=== PATIENT | female | born 1960 | race Hispanic/Latino ===

== ENCOUNTER 2019-10-26 23:56 | Emergency (ER) | payer MEDICAID ==
[~2019-10-26 23:56] MED LIST: ANAS1TAB7 PO; CARB-39 PO; DIPH25 PO; FURO20TA6 PO; IBUP-2784 PO; LACT10SO32 PO; MULT1TAB70 PO; OMEP40CA13 PO; ROPI5TAB4 PO; SPIR50TA5 PO; TRAM50TA4 PO
[2019-10-27 01:11] LABS: APPEARANCE,URINE Clear (CLEAR); BILIRUBIN,URINE Negative (NEGATIVE); COLOR,URINE Yellow (YELLOW); GLUCOSE, URINE (UA) Negative (NEGATIVE); KETONES,URINE Negative (NEGATIVE); LEUKOCYTE ESTERASE ,URINE Negative (NEGATIVE); NITRATE,URINE Negative (NEGATIVE); OCCULT BLOOD,URINE Negative (NEGATIVE); PROTEIN,URINE Negative (NEGATIVE); UROBILINOGEN,URINE 0.2 mg/dL (0.2-1.0)
[2019-10-27] MEDS ORDERED: KETOROLAC TROMETHAMINE 60 MG/2 ML VIAL ONE (01:13)
[2019-10-27] MEDS ORDERED: ONDANSETRON HCL 4 MG/2 ML VIAL ONE (01:13)
[2019-10-27 01:15] LABS: BASOPHILS % (AUTO) 0.3 % (0.0-5.0); EOSINOPHILS % (AUTO) 6.3 % (0.0-8.0); HEMATOCRIT 33.3 % (36-48); LYMPHOCYTES % (AUTO) 25.2 % (21.0-51.0); MEAN CORPUSCULAR HEMOGLOBIN 22.4 pg (27.0-33.0); MEAN CORPUSCULAR HGB CONC 28.8 g/dL (32.0-36.0); MEAN CORPUSCULAR VOLUME 77.6 fL (79-99); MONOCYTES % (AUTO) 14.4 % (3.0-13.0); NEUTROPHILS % (AUTO) 53.5 % (40.0-77.0); PLATELET COUNT (AUTO) 136 K/uL (130-400); RED BLOOD CELL COUNT(AUTO) 4.29 MIL/uL (4.00-5.50); RED CELL DISTRIBUTION WIDTH 18.6 % (11.0-15.5)
[2019-10-27 01:23] LABS: CREATININE 0.8 mg/dL (0.5-1.5); POTASSIUM 3.6 mmol/L (3.5-5.1)
[2019-10-27 01:28] LABS: ALBUMIN 3.1 g/dL (3.5-5.0); BILIRUBIN,TOTAL 0.6 mg/dL (0.2-1.0)
[2019-10-27] MEDS ORDERED: MORPHINE SULFATE 4 MG/1ML SYG ONE (01:31)
[2019-10-27 01:53] LABS: AMPHET/METH SCREEN,URINE NEGATIVE (NEGATIVE); BARBITURATE SCREEN, URINE NEGATIVE (NEGATIVE); BENZODIAZEPINES SCREEN,URINE NEGATIVE (NEGATIVE); CANNABINOID SCREEN,URINE NEGATIVE (NEGATIVE); COCAINE SCREEN,URINE NEGATIVE (NEGATIVE); OPIATE SCREEN,URINE NEGATIVE (NEGATIVE); PHENCYCLIDINE SCREEN,URINE NEGATIVE (NEGATIVE)
== END 2019-10-27 02:30 | disposition home or self-care (01) ==
LOC: EDH 23:56
DX: G89.29 Other chronic pain (principal); K74.60 Unspecified cirrhosis of liver; F41.9 Anxiety disorder, unspecified; M81.0 Age-related osteoporosis without current pathological fracture; G20 Parkinson's disease; F20.9 Schizophrenia, unspecified
CPT/HCPCS: 36415; 80053; 80305; 81003; 82550; 84484; 85025; 85651; 93005; 96374; 96375; 99285; J1885; J2270; J2405

== ENCOUNTER → 2020-03-13 | Outpatient (CLI) | payer MEDICAID ==
[~2020-03-13] MED LIST changes: +ALBUMIN (HUMAN) 25% 200 ML IV SCH; -ANAS1TAB7 PO; -CARB-39 PO; -DIPH25 PO; -FURO20TA6 PO; -IBUP-2784 PO; -LACT10SO32 PO; -MULT1TAB70 PO; -OMEP40CA13 PO; -ROPI5TAB4 PO; -SPIR50TA5 PO; -TRAM50TA4 PO
--- NOTE | 2020-03-13 10:25 | NUR ---
US GUIDED PARACENTESIS ORDERED. NOT DONE US OF ALL 4 QUADRANTS OF THE ABDOMEN PERFORMED BY SHAKILA MENDOZA. DR. MORAN REVIEWED THE IMAGES AND CONFIRMED, NOT ENOUGH FLUID TO SAFELY PERFORM PROCEDURE. INFORMED PT/FAMILY OF RESULTS. CALLED REPORT TO [facility], ROSALEE GIL LVN. PT DISCHARGED TO [facility] VIA STRETCHER, STABLE, AAO X 3, NO C/O PAIN.
== END | disposition home or self-care (01) ==
LOC: RAH 10:02
PROVIDERS: ATTEND Family Medicine
DX: K74.60 Unspecified cirrhosis of liver (principal); R18.8 Other ascites; F41.9 Anxiety disorder, unspecified; M81.0 Age-related osteoporosis without current pathological fracture; F20.9 Schizophrenia, unspecified; G20 Parkinson's disease

== ENCOUNTER 2020-03-30 19:26 | Inpatient (IN) | payer MEDICAID ==
[~2020-03-30] VITALS: Ht 152.4 cm; Wt 84.0 kg
[~2020-03-30 19:26] MED LIST changes: -ALBUMIN (HUMAN) 25% 200 ML IV SCH; +ANAS1TAB7 PO; +CARB-39 PO; +DIPH25 PO; +FURO20TA6 PO; +IBUP-2784 PO; +LACT10SO32 PO; +MULT-660 PO; +OMEP40CA13 PO; +ROPI5TAB4 PO; +SPIR50TA5 PO; +TRAM50TA4 PO
[2020-03-30 20:16] LABS: APPEARANCE,URINE Clear (CLEAR); BILIRUBIN,URINE Negative (NEGATIVE); COLOR,URINE Yellow (YELLOW); GLUCOSE, URINE (UA) Negative (NEGATIVE); KETONES,URINE Negative (NEGATIVE); LEUKOCYTE ESTERASE ,URINE Negative (NEGATIVE); NITRATE,URINE Negative (NEGATIVE); OCCULT BLOOD,URINE Moderate (NEGATIVE); PROTEIN,URINE Negative (NEGATIVE)
[2020-03-30 20:26] LABS: BACTERIA,URINE Rare /HPF (None Seen); MUCUS,URINE None Seen LPF (None Seen); SQUAMOUS EPITHELIAL CELL,UR 0-2 /HPF (0-2); WBC,URINE 0-1 /HPF (0-1)
[2020-03-30 20:41] LABS: BASOPHILS % (AUTO) 0.5 % (0.0-5.0); HEMATOCRIT 34.6 % (36-48); LYMPHOCYTES % (AUTO) 21.7 % (21.0-51.0); MEAN CORPUSCULAR HEMOGLOBIN 23.8 pg (27.0-33.0); MEAN CORPUSCULAR HGB CONC 31.2 g/dL (32.0-36.0); MEAN CORPUSCULAR VOLUME 76.4 fL (79-99); MONOCYTES % (AUTO) 10.3 % (3.0-13.0); NEUTROPHILS % (AUTO) 64.9 % (40.0-77.0); PLATELET COUNT (AUTO) 212 K/uL (130-400); RED BLOOD CELL COUNT(AUTO) 4.53 MIL/uL (4.00-5.50); RED CELL DISTRIBUTION WIDTH 21.1 % (11.0-15.5); WHITE BLOOD COUNT (AUTO) 8.7 K/uL (4.8-10.8)
[2020-03-30 20:58] LABS: CREATININE 1.2 mg/dL (0.5-1.5); POTASSIUM 4.7 mmol/L (3.5-5.1)
[2020-03-30 21:03] LABS: ALBUMIN 2.3 g/dL (3.5-5.0); BILIRUBIN,TOTAL 1.3 mg/dL (0.2-1.0); TOTAL PROTEIN, SERUM 7.7 g/dL (6.0-8.3)
[2020-03-30] MEDS ORDERED: ONDANSETRON ODT 4 MG TAB ONE (23:31)
[2020-03-30] MEDS ORDERED: MORPHINE SULFATE 4 MG/1ML SYG ONE (23:31)
[2020-03-31] MEDS ORDERED: SODIUM CHLORIDE 0.9% 500ML 500 ML IV ONE ×2 (00:15→01:21)
[2020-03-31] MEDS: SODIUM CHLORIDE 0.9% 1000ML 1,000 ML IV SCH ×2 (02:08→12:08)
[2020-03-31] MEDS ORDERED: ONDANSETRON HCL 4 MG/2 ML VIAL IV PRN (02:15)
[2020-03-31] MEDS ORDERED: ACETAMINOPHEN 325 MG TAB PO PRN (02:15)
[2020-03-31] MEDS ORDERED: LACTULOSE 20 GM/30 ML UDCUP PO PRN (02:15)
[2020-03-31] MEDS ORDERED: VANCOMYCIN 1GM+NS 250ML 250 ML IV ONE (02:27)
[2020-03-31] MEDS ORDERED: ZOSYN 3.375GM+NS 50ML 50 ML IV ONE ×2 (02:27→07:45)
[2020-03-31] MEDS ORDERED: ZIPRASIDONE MESYLATE 20 MG/VIAL IM ONE (03:09)
[2020-03-31] MEDS ORDERED: ZIPRASIDONE MESYLATE 20 MG/VIAL IM SCH (03:15)
[2020-03-31] MEDS ORDERED: SODIUM CHLORIDE 0.9% 1000ML 1,000 ML IV ONE (07:17)
[2020-03-31 07:40] LABS: BASOPHILS % (AUTO) 0.8 % (0.0-5.0); EOSINOPHILS % (AUTO) 8.2 % (0.0-8.0); HEMATOCRIT 31.2 % (36-48); LYMPHOCYTES % (AUTO) 27.6 % (21.0-51.0); MEAN CORPUSCULAR HEMOGLOBIN 23.6 pg (27.0-33.0); MEAN CORPUSCULAR HGB CONC 30.1 g/dL (32.0-36.0); MEAN CORPUSCULAR VOLUME 78.2 fL (79-99); MONOCYTES % (AUTO) 11.1 % (3.0-13.0); NEUTROPHILS % (AUTO) 51.7 % (40.0-77.0); PLATELET COUNT (AUTO) 161 K/uL (130-400); RED BLOOD CELL COUNT(AUTO) 3.99 MIL/uL (4.00-5.50); RED CELL DISTRIBUTION WIDTH 21.1 % (11.0-15.5); WHITE BLOOD COUNT (AUTO) 5.2 K/uL (4.8-10.8)
[2020-03-31] MEDS ORDERED: FAMOTIDINE 20MG TAB 20 MG TAB ONE (07:44)
[2020-03-31] MEDS ORDERED: MORPHINE SULFATE 2 MG/ML 1ML SYG ONE (07:45)
[2020-03-31] MEDS ORDERED: ENOXAPARIN SODIUM 40 MG/0.4 ML SYRINGE SQ ONE (07:45)
[2020-03-31 07:56] LABS: CREATININE 1.1 mg/dL (0.5-1.5); POTASSIUM 4.3 mmol/L (3.5-5.1)
[2020-03-31] MEDS: ENOXAPARIN SODIUM 40 MG/0.4 ML SYRINGE SQ SCH (09:00)
[2020-03-31] MEDS: FAMOTIDINE 20MG TAB 20 MG TAB PO SCH (09:00)
[2020-03-31] MEDS ORDERED: VANCOMYCIN PROTOCOL PER PHARMACY IV SCH (09:30)
[2020-03-31] MEDS ORDERED: RENAL DOSE IV SCH (09:30)
[2020-03-31] MEDS: ZOSYN 3.375GM+NS 50ML 50 ML IV SCH ×2 (09:58→18:04)
[2020-03-31 10:30] VITALS: BP 85/61
[2020-03-31] MEDS: VANCOMYCIN 1GM+NS 250ML 250 ML IV SCH (14:30)
[2020-03-31 16:00] VITALS: BP 106/66
[2020-03-31 20:02] VITALS: BP 92/56
[2020-03-31] MEDS ORDERED: PETR113O TP (20:32)
[2020-03-31] MEDS ORDERED: GABA300C PO (20:32)
[2020-03-31] MEDS ORDERED: SPIR100T5 PO (20:32)
[2020-03-31] MEDS ORDERED: BUSP10TA3 PO (20:32)
[2020-03-31] MEDS ORDERED: FERR324T4 PO (20:32)
[2020-03-31] MEDS ORDERED: ZINC57OI4 TP (20:32)
[2020-03-31] MEDS ORDERED: SULF1TAB42 PO (20:32)
[2020-03-31] MEDS ORDERED: OXYB5TAB15 PO (20:32)
[2020-03-31] MEDS ORDERED: DOCU-116 PO (20:32)
[2020-03-31] MEDS ORDERED: ESCI5TAB10 PO (20:32)
[2020-03-31] MEDS ORDERED: PHEN26CR2 RC (20:32)
[2020-03-31] MEDS ORDERED: PANT40TA PO (20:32)
[2020-03-31] MEDS ORDERED: BACL5TAB PO (20:32)
[2020-03-31 23:42] VITALS: BP 128/62
[2020-04-01] MEDS: VANCOMYCIN 1GM+NS 250ML 250 ML IV SCH ×2 (02:15→15:42)
[2020-04-01] MEDS: ZOSYN 3.375GM+NS 50ML 50 ML IV SCH ×3 (02:15→17:39)
[2020-04-01] MEDS: SODIUM CHLORIDE 0.9% 1000ML 1,000 ML IV SCH ×2 (02:16→08:08)
[2020-04-01 03:41] VITALS: BP 100/63
[2020-04-01 06:11] LABS: BASOPHILS % (AUTO) 0.8 % (0.0-5.0); EOSINOPHILS % (AUTO) 8.7 % (0.0-8.0); HEMATOCRIT 31.9 % (36-48); LYMPHOCYTES % (AUTO) 22.3 % (21.0-51.0); MEAN CORPUSCULAR HEMOGLOBIN 23.4 pg (27.0-33.0); MEAN CORPUSCULAR HGB CONC 30.1 g/dL (32.0-36.0); MEAN CORPUSCULAR VOLUME 77.6 fL (79-99); MONOCYTES % (AUTO) 10.5 % (3.0-13.0); NEUTROPHILS % (AUTO) 57.2 % (40.0-77.0); PLATELET COUNT (AUTO) 147 K/uL (130-400); RED BLOOD CELL COUNT(AUTO) 4.11 MIL/uL (4.00-5.50); RED CELL DISTRIBUTION WIDTH 20.8 % (11.0-15.5); WHITE BLOOD COUNT (AUTO) 6.6 K/uL (4.8-10.8)
[2020-04-01 06:25] LABS: CREATININE 0.7 mg/dL (0.5-1.5); POTASSIUM 4.6 mmol/L (3.5-5.1)
[2020-04-01 08:42] LABS: INR 1.18 (0.85-1.15); PARTIAL THROMBOPLASTIN TIME 29.9 SEC (26.3-35.5); PROTHROMBIN TIME 12.7 SEC (9.6-11.6)
[2020-04-01] MEDS: MORPHINE SULFATE 2 MG/ML 1ML SYG IV PRN ×2 (09:04→16:34)
[2020-04-01 09:11] VITALS: BP 100/45
[2020-04-01 11:55] VITALS: BP 94/50
[2020-04-01] MEDS: ENOXAPARIN SODIUM 40 MG/0.4 ML SYRINGE SQ SCH (15:41)
[2020-04-01] MEDS: FAMOTIDINE 20MG TAB 20 MG TAB PO SCH (15:49)
[2020-04-01] MEDS ORDERED: HEMORRHOIDAL OINTMENT 57 GM CREAM.GM. RC PRN (17:00)
[2020-04-01 17:03] VITALS: BP 91/55
[2020-04-01 20:04] VITALS: BP 89/47
[2020-04-01] MEDS: BACLOFEN 10 MG TABLET PO SCH (22:01)
[2020-04-01] MEDS: SULFAMETHOX-TMP DS 800/160 TAB PO SCH (22:01)
[2020-04-01] MEDS: BUSPIRONE HCL 5 MG TABLET PO SCH (22:01)
[2020-04-01] MEDS: LACTULOSE 20 GM/30 ML UDCUP PO SCH (22:01)
[2020-04-02 00:04] VITALS: BP 99/55
[2020-04-02] MEDS: ZOSYN 3.375GM+NS 50ML 50 ML IV SCH ×3 (02:07→17:42)
[2020-04-02] MEDS: VANCOMYCIN 1GM+NS 250ML 250 ML IV SCH ×2 (03:00→15:43)
[2020-04-02 04:04] VITALS: BP 104/64
[2020-04-02] MEDS: SODIUM CHLORIDE 0.9% 1000ML 1,000 ML IV SCH ×3 (04:08→14:08)
[2020-04-02 04:54] LABS: BASOPHILS % (AUTO) 0.7 % (0.0-5.0); EOSINOPHILS % (AUTO) 8.3 % (0.0-8.0); HEMATOCRIT 30.3 % (36-48); LYMPHOCYTES % (AUTO) 26.1 % (21.0-51.0); MEAN CORPUSCULAR HEMOGLOBIN 23.8 pg (27.0-33.0); MEAN CORPUSCULAR HGB CONC 30.4 g/dL (32.0-36.0); MEAN CORPUSCULAR VOLUME 78.3 fL (79-99); MONOCYTES % (AUTO) 12.2 % (3.0-13.0); NEUTROPHILS % (AUTO) 52.5 % (40.0-77.0); PLATELET COUNT (AUTO) 150 K/uL (130-400); RED BLOOD CELL COUNT(AUTO) 3.87 MIL/uL (4.00-5.50); RED CELL DISTRIBUTION WIDTH 21.2 % (11.0-15.5); WHITE BLOOD COUNT (AUTO) 4.4 K/uL (4.8-10.8)
[2020-04-02] MEDS: MORPHINE SULFATE 2 MG/ML 1ML SYG IV PRN ×2 (04:58→21:45)
[2020-04-02 05:07] LABS: CREATININE 0.7 mg/dL (0.5-1.5); POTASSIUM 4.1 mmol/L (3.5-5.1)
[2020-04-02] MEDS: PETROLATUM WHITE TP SCH (09:00)
[2020-04-02] MEDS: LANOLIN TP SCH (09:00)
[2020-04-02 09:06] VITALS: BP 88/45
[2020-04-02] MEDS: LACTULOSE 20 GM/30 ML UDCUP PO SCH ×2 (10:23→17:42)
[2020-04-02] MEDS: ENOXAPARIN SODIUM 40 MG/0.4 ML SYRINGE SQ SCH (10:25)
[2020-04-02] MEDS: ZINC OXIDE OINT 60GM TUBE TP SCH (10:25)
[2020-04-02] MEDS: SULFAMETHOX-TMP DS 800/160 TAB PO SCH ×2 (10:26→21:40)
[2020-04-02] MEDS: BUSPIRONE HCL 5 MG TABLET PO SCH ×2 (10:26→21:40)
[2020-04-02] MEDS: SPIRONOLACTONE 25 MG TAB PO SCH (10:26)
[2020-04-02] MEDS: FAMOTIDINE 20MG TAB 20 MG TAB PO SCH (10:26)
[2020-04-02] MEDS: PANTOPRAZOLE SODIUM 40 MG TABLET.DR PO SCH (10:27)
[2020-04-02] MEDS: FERROUS SULFATE 325 MG TABLET.DR PO SCH (10:27)
[2020-04-02] MEDS: CITALOPRAM 20 MG TABLET PO SCH (10:27)
[2020-04-02] MEDS: BACLOFEN 10 MG TABLET PO SCH ×2 (10:28→21:40)
[2020-04-02] MEDS: GABAPENTIN 300 MG CAPSULE PO SCH (10:28)
[2020-04-02] MEDS: OXYBUTYNIN CHLORIDE 5 MG TABLET PO SCH (10:29)
[2020-04-02] MEDS: FUROSEMIDE 20 MG TABLET PO SCH (10:29)
[2020-04-02 11:48] VITALS: BP 85/57
[2020-04-02 17:01] VITALS: BP 82/48
[2020-04-02 20:00] VITALS: BP 103/52
[2020-04-03] VITALS: BP 94/52
[2020-04-03] MEDS: ZOSYN 3.375GM+NS 50ML 50 ML IV SCH ×2 (01:17→10:21)
[2020-04-03] MEDS: SODIUM CHLORIDE 0.9% 1000ML 1,000 ML IV SCH ×2 (01:17→20:27)
[2020-04-03] MEDS: MORPHINE SULFATE 2 MG/ML 1ML SYG IV PRN (02:04)
[2020-04-03] MEDS: VANCOMYCIN 1GM+NS 250ML 250 ML IV SCH (02:07)
[2020-04-03] MEDS ORDERED: HYDROXYZINE HCL 10 MG TABLET PO SCH (02:30)
[2020-04-03 08:05] VITALS: BP 97/54
[2020-04-03 09:00] LABS: BASOPHILS % (AUTO) 0.7 % (0.0-5.0); EOSINOPHILS % (AUTO) 8.2 % (0.0-8.0); HEMATOCRIT 34.6 % (36-48); LYMPHOCYTES % (AUTO) 34.7 % (21.0-51.0); MEAN CORPUSCULAR HEMOGLOBIN 23.7 pg (27.0-33.0); MEAN CORPUSCULAR HGB CONC 29.8 g/dL (32.0-36.0); MEAN CORPUSCULAR VOLUME 79.5 fL (79-99); MONOCYTES % (AUTO) 12.1 % (3.0-13.0); NEUTROPHILS % (AUTO) 44.1 % (40.0-77.0); PLATELET COUNT (AUTO) 143 K/uL (130-400); RED BLOOD CELL COUNT(AUTO) 4.35 MIL/uL (4.00-5.50); RED CELL DISTRIBUTION WIDTH 21.3 % (11.0-15.5)
[2020-04-03] MEDS: LANOLIN TP SCH (09:00)
[2020-04-03] MEDS: PETROLATUM WHITE TP SCH (09:00)
[2020-04-03 09:11] LABS: CREATININE 0.7 mg/dL (0.5-1.5); POTASSIUM 3.5 mmol/L (3.5-5.1)
[2020-04-03] MEDS: SPIRONOLACTONE 25 MG TAB PO SCH (10:12)
[2020-04-03] MEDS: CITALOPRAM 20 MG TABLET PO SCH (10:13)
[2020-04-03] MEDS: SULFAMETHOX-TMP DS 800/160 TAB PO SCH ×2 (10:14→20:49)
[2020-04-03] MEDS: BUSPIRONE HCL 5 MG TABLET PO SCH ×2 (10:14→20:49)
[2020-04-03] MEDS: BACLOFEN 10 MG TABLET PO SCH ×2 (10:15→20:49)
[2020-04-03] MEDS: FERROUS SULFATE 325 MG TABLET.DR PO SCH (10:15)
[2020-04-03] MEDS: LACTULOSE 20 GM/30 ML UDCUP PO SCH ×2 (10:16→20:48)
[2020-04-03] MEDS: GABAPENTIN 300 MG CAPSULE PO SCH (10:16)
[2020-04-03] MEDS: FUROSEMIDE 20 MG TABLET PO SCH (10:16)
[2020-04-03] MEDS: FAMOTIDINE 20MG TAB 20 MG TAB PO SCH (10:17)
[2020-04-03] MEDS: OXYBUTYNIN CHLORIDE 5 MG TABLET PO SCH (10:17)
[2020-04-03] MEDS: ENOXAPARIN SODIUM 40 MG/0.4 ML SYRINGE SQ SCH (10:21)
[2020-04-03] MEDS: ZINC OXIDE OINT 60GM TUBE TP SCH (10:21)
[2020-04-03] MEDS: DOCUSATE SODIUM 100 MG CAP PO PRN (10:24)
[2020-04-03] MEDS: PANTOPRAZOLE SODIUM 40 MG TABLET.DR PO SCH (10:36)
[2020-04-03 11:28] VITALS: BP 95/50
[2020-04-03 16:47] VITALS: BP 96/58
[2020-04-03 19:36] VITALS: BP 99/53
[2020-04-03] MEDS ORDERED: HYDROXYZINE HCL 25 MG TABLET PO SCH (20:45)
[2020-04-03 23:56] VITALS: BP 93/59
[2020-04-04] MEDS: ACETAMINOPHEN 325 MG TAB PO PRN ×2 (03:19→17:52)
[2020-04-04 04:00] VITALS: BP 117/69
[2020-04-04] MEDS: SODIUM CHLORIDE 0.9% 1000ML 1,000 ML IV SCH (05:10)
[2020-04-04 06:09] LABS: BASOPHILS % (AUTO) 0.9 % (0.0-5.0); EOSINOPHILS % (AUTO) 6.8 % (0.0-8.0); HEMATOCRIT 35.6 % (36-48); LYMPHOCYTES % (AUTO) 33.6 % (21.0-51.0); MEAN CORPUSCULAR HEMOGLOBIN 23.9 pg (27.0-33.0); MEAN CORPUSCULAR HGB CONC 30.1 g/dL (32.0-36.0); MEAN CORPUSCULAR VOLUME 79.5 fL (79-99); MONOCYTES % (AUTO) 11.1 % (3.0-13.0); NEUTROPHILS % (AUTO) 47.4 % (40.0-77.0); PLATELET COUNT (AUTO) 158 K/uL (130-400); RED BLOOD CELL COUNT(AUTO) 4.48 MIL/uL (4.00-5.50); RED CELL DISTRIBUTION WIDTH 21.4 % (11.0-15.5); WHITE BLOOD COUNT (AUTO) 4.4 K/uL (4.8-10.8)
[2020-04-04 06:37] LABS: CREATININE 0.9 mg/dL (0.5-1.5); POTASSIUM 3.8 mmol/L (3.5-5.1)
[2020-04-04 08:32] VITALS: BP 109/54
[2020-04-04] MEDS: PETROLATUM WHITE TP SCH (09:00)
[2020-04-04] MEDS: LANOLIN TP SCH (09:00)
[2020-04-04] MEDS: SPIRONOLACTONE 25 MG TAB PO SCH (10:41)
[2020-04-04] MEDS: SULFAMETHOX-TMP DS 800/160 TAB PO SCH ×2 (10:42→21:59)
[2020-04-04] MEDS: BACLOFEN 10 MG TABLET PO SCH ×2 (10:42→21:59)
[2020-04-04] MEDS: BUSPIRONE HCL 5 MG TABLET PO SCH ×2 (10:43→21:58)
[2020-04-04] MEDS: CITALOPRAM 20 MG TABLET PO SCH (10:44)
[2020-04-04] MEDS: LACTULOSE 20 GM/30 ML UDCUP PO SCH ×3 (10:45→17:19)
[2020-04-04] MEDS: FUROSEMIDE 20 MG TABLET PO SCH (10:45)
[2020-04-04] MEDS: FERROUS SULFATE 325 MG TABLET.DR PO SCH (10:45)
[2020-04-04] MEDS: OXYBUTYNIN CHLORIDE 5 MG TABLET PO SCH (10:47)
[2020-04-04] MEDS: FAMOTIDINE 20MG TAB 20 MG TAB PO SCH (10:47)
[2020-04-04] MEDS: GABAPENTIN 300 MG CAPSULE PO SCH (10:47)
[2020-04-04] MEDS: PANTOPRAZOLE SODIUM 40 MG TABLET.DR PO SCH (10:48)
[2020-04-04] MEDS: DOCUSATE SODIUM 100 MG CAP PO PRN (10:48)
[2020-04-04] MEDS: ENOXAPARIN SODIUM 40 MG/0.4 ML SYRINGE SQ SCH (10:50)
[2020-04-04] MEDS: ZINC OXIDE OINT 60GM TUBE TP SCH (10:51)
[2020-04-04 11:08] VITALS: BP 108/71
[2020-04-04] MEDS: MORPHINE SULFATE 2 MG/ML 1ML SYG IV PRN (11:17)
[2020-04-04] MEDS ORDERED: BISACODYL 10 MG SUPP.RECT RC SCH (12:15)
[2020-04-04 16:16] VITALS: BP 108/76
[2020-04-04 19:06] VITALS: BP 109/56
[2020-04-04 22:48] VITALS: BP 115/62
[2020-04-05 03:00] VITALS: BP 105/63
[2020-04-05] MEDS: LACTULOSE 20 GM/30 ML UDCUP PO SCH ×4 (03:36→18:15)
[2020-04-05] MEDS: BACLOFEN 10 MG TABLET PO SCH ×2 (06:28→12:44)
[2020-04-05 07:59] VITALS: BP 115/75
[2020-04-05] MEDS: FAMOTIDINE 20MG TAB 20 MG TAB PO SCH (09:00)
[2020-04-05] MEDS: ZINC OXIDE OINT 60GM TUBE TP SCH (09:00)
[2020-04-05] MEDS: LANOLIN TP SCH (09:00)
[2020-04-05] MEDS: PETROLATUM WHITE TP SCH (09:00)
[2020-04-05 11:21] VITALS: BP 105/67
[2020-04-05] MEDS: SPIRONOLACTONE 25 MG TAB PO SCH (12:37)
[2020-04-05] MEDS: SULFAMETHOX-TMP DS 800/160 TAB PO SCH ×2 (12:37→21:15)
[2020-04-05] MEDS: BUSPIRONE HCL 5 MG TABLET PO SCH ×2 (12:38→21:16)
[2020-04-05] MEDS: CITALOPRAM 20 MG TABLET PO SCH (12:39)
[2020-04-05] MEDS: FERROUS SULFATE 325 MG TABLET.DR PO SCH (12:40)
[2020-04-05] MEDS: GABAPENTIN 300 MG CAPSULE PO SCH (12:41)
[2020-04-05] MEDS: FUROSEMIDE 20 MG TABLET PO SCH (12:41)
[2020-04-05] MEDS: OXYBUTYNIN CHLORIDE 5 MG TABLET PO SCH (12:42)
[2020-04-05] MEDS: PANTOPRAZOLE SODIUM 40 MG TABLET.DR PO SCH (12:42)
[2020-04-05] MEDS: ENOXAPARIN SODIUM 40 MG/0.4 ML SYRINGE SQ SCH (12:44)
[2020-04-05] MEDS: DOCUSATE SODIUM 100 MG CAP PO PRN (12:45)
[2020-04-05 17:11] VITALS: BP 102/65
[2020-04-05 19:33] VITALS: BP 106/59
[2020-04-05 23:00] VITALS: BP 105/49
[2020-04-06] MEDS: LACTULOSE 20 GM/30 ML UDCUP PO SCH ×5 (00:15→23:37)
[2020-04-06] MEDS: MORPHINE SULFATE 2 MG/ML 1ML SYG IV PRN ×2 (02:11→19:34)
[2020-04-06 03:03] VITALS: BP 109/62
[2020-04-06] MEDS: ACETAMINOPHEN 325 MG TAB PO PRN (06:30)
[2020-04-06 07:30] VITALS: BP 105/81
[2020-04-06] MEDS: PETROLATUM WHITE TP SCH (09:00)
[2020-04-06] MEDS: LANOLIN TP SCH (09:00)
[2020-04-06] MEDS: FAMOTIDINE 20MG TAB 20 MG TAB PO SCH (09:00)
[2020-04-06] MEDS: ZINC OXIDE OINT 60GM TUBE TP SCH (09:00)
[2020-04-06] MEDS: BACLOFEN 10 MG TABLET PO SCH ×2 (09:17→20:14)
[2020-04-06] MEDS: ENOXAPARIN SODIUM 40 MG/0.4 ML SYRINGE SQ SCH (09:17)
[2020-04-06] MEDS: SULFAMETHOX-TMP DS 800/160 TAB PO SCH ×2 (09:18→20:14)
[2020-04-06] MEDS: FERROUS SULFATE 325 MG TABLET.DR PO SCH (09:18)
[2020-04-06] MEDS: CITALOPRAM 20 MG TABLET PO SCH (09:18)
[2020-04-06] MEDS: FUROSEMIDE 20 MG TABLET PO SCH (09:18)
[2020-04-06] MEDS: PANTOPRAZOLE SODIUM 40 MG TABLET.DR PO SCH (09:18)
[2020-04-06] MEDS: GABAPENTIN 300 MG CAPSULE PO SCH (09:18)
[2020-04-06] MEDS: BUSPIRONE HCL 5 MG TABLET PO SCH ×2 (09:19→20:14)
[2020-04-06] MEDS: SPIRONOLACTONE 25 MG TAB PO SCH (09:19)
[2020-04-06] MEDS: OXYBUTYNIN CHLORIDE 5 MG TABLET PO SCH (09:19)
[2020-04-06 11:00] VITALS: BP 102/59
[2020-04-06 16:00] VITALS: BP 101/62
[2020-04-06 19:00] VITALS: BP 103/61
[2020-04-06] MEDS ORDERED: HYDROMORPHONE HCL 0.5 MG/0.5 ML ML IVP ONE (20:00)
[2020-04-06] MEDS ORDERED: HYDROXYZINE HCL 25 MG TABLET PO SCH (20:00)
[2020-04-06] MEDS: DiphenhydrAMINE HCL 50 MG/ML VIAL IV SCH (23:41)
[2020-04-06 23:46] VITALS: BP 106/64
[2020-04-07 04:00] VITALS: BP 139/64
[2020-04-07] MEDS: LACTULOSE 20 GM/30 ML UDCUP PO SCH ×3 (05:29→18:33)
[2020-04-07 05:41] LABS: BASOPHILS % (AUTO) 0.9 % (0.0-5.0); HEMATOCRIT 34.3 % (36-48); LYMPHOCYTES % (AUTO) 34.4 % (21.0-51.0); MEAN CORPUSCULAR HEMOGLOBIN 24.4 pg (27.0-33.0); MEAN CORPUSCULAR HGB CONC 30.9 g/dL (32.0-36.0); MONOCYTES % (AUTO) 13.2 % (3.0-13.0); NEUTROPHILS % (AUTO) 43.1 % (40.0-77.0); PLATELET COUNT (AUTO) 161 K/uL (130-400); RED BLOOD CELL COUNT(AUTO) 4.34 MIL/uL (4.00-5.50); RED CELL DISTRIBUTION WIDTH 21.9 % (11.0-15.5); WHITE BLOOD COUNT (AUTO) 4.6 K/uL (4.8-10.8)
[2020-04-07 06:20] LABS: ALBUMIN 2.3 g/dL (3.5-5.0); BILIRUBIN,TOTAL 0.7 mg/dL (0.2-1.0); CREATININE 0.8 mg/dL (0.5-1.5); POTASSIUM 3.9 mmol/L (3.5-5.1)
[2020-04-07] MEDS: GABAPENTIN 300 MG CAPSULE PO SCH (08:27)
[2020-04-07] MEDS: FERROUS SULFATE 325 MG TABLET.DR PO SCH (08:27)
[2020-04-07] MEDS: BUSPIRONE HCL 5 MG TABLET PO SCH ×2 (08:27→20:48)
[2020-04-07] MEDS: SPIRONOLACTONE 25 MG TAB PO SCH (08:27)
[2020-04-07] MEDS: BACLOFEN 10 MG TABLET PO SCH ×2 (08:27→20:49)
[2020-04-07] MEDS: SULFAMETHOX-TMP DS 800/160 TAB PO SCH ×2 (08:28→20:48)
[2020-04-07] MEDS: FUROSEMIDE 20 MG TABLET PO SCH (08:28)
[2020-04-07] MEDS: CITALOPRAM 20 MG TABLET PO SCH (08:28)
[2020-04-07] MEDS: DOCUSATE SODIUM 100 MG CAP PO PRN (08:28)
[2020-04-07] MEDS: PANTOPRAZOLE SODIUM 40 MG TABLET.DR PO SCH (08:28)
[2020-04-07] MEDS: ENOXAPARIN SODIUM 40 MG/0.4 ML SYRINGE SQ SCH (08:29)
[2020-04-07] MEDS: ZINC OXIDE OINT 60GM TUBE TP SCH (08:32)
[2020-04-07] MEDS: LANOLIN TP SCH (08:39)
[2020-04-07] MEDS: FAMOTIDINE 20MG TAB 20 MG TAB PO SCH (08:39)
[2020-04-07] MEDS: PETROLATUM WHITE TP SCH (08:39)
[2020-04-07 08:55] VITALS: BP 97/50
[2020-04-07] MEDS: OXYBUTYNIN CHLORIDE 5 MG TABLET PO SCH (09:00)
[2020-04-07 11:59] VITALS: BP 124/72
[2020-04-07] MEDS ORDERED: MECLIZINE HCL 12.5 MG TABLET PO SCH (15:45)
[2020-04-07] MEDS ORDERED: MECLIZINE HCL 12.5 MG TABLET PO PRN (15:45)
[2020-04-07 16:46] VITALS: BP 108/69
[2020-04-07 19:05] VITALS: BP 101/60
[2020-04-07] MEDS: ACETAMINOPHEN 325 MG TAB PO PRN (20:48)
[2020-04-07] MEDS: DiphenhydrAMINE HCL 50 MG/ML VIAL IV SCH (20:51)
[2020-04-07] MEDS ORDERED: MORPHINE SULFATE 2 MG/ML 1ML SYG ONE (22:55)
[2020-04-07] MEDS ORDERED: MORPHINE SULFATE 2 MG/ML 1ML SYG IM ONE (23:00)
[2020-04-07 23:16] VITALS: BP 99/44
[2020-04-08] MEDS: LACTULOSE 20 GM/30 ML UDCUP PO SCH ×4 (00:29→18:15)
[2020-04-08] MEDS: ACETAMINOPHEN 325 MG TAB PO PRN ×3 (03:39→20:38)
[2020-04-08 03:49] VITALS: BP 110/60
[2020-04-08 06:13] LABS: BASOPHILS % (AUTO) 0.6 % (0.0-5.0); EOSINOPHILS % (AUTO) 5.6 % (0.0-8.0); HEMATOCRIT 38.9 % (36-48); LYMPHOCYTES % (AUTO) 34.7 % (21.0-51.0); MEAN CORPUSCULAR HEMOGLOBIN 23.7 pg (27.0-33.0); MEAN CORPUSCULAR HGB CONC 30.1 g/dL (32.0-36.0); MEAN CORPUSCULAR VOLUME 78.9 fL (79-99); MONOCYTES % (AUTO) 11.4 % (3.0-13.0); NEUTROPHILS % (AUTO) 47.3 % (40.0-77.0); PLATELET COUNT (AUTO) 168 K/uL (130-400); RED BLOOD CELL COUNT(AUTO) 4.93 MIL/uL (4.00-5.50); RED CELL DISTRIBUTION WIDTH 22.3 % (11.0-15.5); WHITE BLOOD COUNT (AUTO) 5.2 K/uL (4.8-10.8)
[2020-04-08 06:34] LABS: ALBUMIN 2.7 g/dL (3.5-5.0); BILIRUBIN,TOTAL 0.9 mg/dL (0.2-1.0); CREATININE 0.9 mg/dL (0.5-1.5); POTASSIUM 3.9 mmol/L (3.5-5.1)
[2020-04-08 08:00] VITALS: BP 105/60
[2020-04-08] MEDS: ZINC OXIDE OINT 60GM TUBE TP SCH (09:00)
[2020-04-08] MEDS: PETROLATUM WHITE TP SCH (09:00)
[2020-04-08] MEDS: FAMOTIDINE 20MG TAB 20 MG TAB PO SCH (09:00)
[2020-04-08] MEDS: LANOLIN TP SCH (09:00)
[2020-04-08] MEDS: BACLOFEN 10 MG TABLET PO SCH ×2 (09:30→20:30)
[2020-04-08] MEDS: SPIRONOLACTONE 25 MG TAB PO SCH (09:31)
[2020-04-08] MEDS: OXYBUTYNIN CHLORIDE 5 MG TABLET PO SCH (09:31)
[2020-04-08] MEDS: BUSPIRONE HCL 5 MG TABLET PO SCH ×2 (09:31→20:30)
[2020-04-08] MEDS: CITALOPRAM 20 MG TABLET PO SCH (09:31)
[2020-04-08] MEDS: SULFAMETHOX-TMP DS 800/160 TAB PO SCH ×2 (09:31→20:30)
[2020-04-08] MEDS: GABAPENTIN 300 MG CAPSULE PO SCH (09:31)
[2020-04-08] MEDS: PANTOPRAZOLE SODIUM 40 MG TABLET.DR PO SCH (09:32)
[2020-04-08] MEDS: FUROSEMIDE 20 MG TABLET PO SCH (09:32)
[2020-04-08] MEDS: FERROUS SULFATE 325 MG TABLET.DR PO SCH (09:32)
[2020-04-08] MEDS: ENOXAPARIN SODIUM 40 MG/0.4 ML SYRINGE SQ SCH (09:32)
[2020-04-08 11:15] VITALS: BP 97/63
[2020-04-08 16:00] VITALS: BP 133/65
[2020-04-08] MEDS: DiphenhydrAMINE HCL 50 MG/ML VIAL IV SCH (20:40)
[2020-04-08] MEDS ORDERED: MORPHINE SULFATE 2 MG/ML 1ML SYG ONE (23:08)
[2020-04-09] MEDS: LACTULOSE 20 GM/30 ML UDCUP PO SCH ×4 (00:22→18:15)
[2020-04-09 00:27] VITALS: BP 106/62
[2020-04-09] MEDS ORDERED: MORPHINE SULFATE 2 MG/ML 1ML SYG IVP STA (00:56)
[2020-04-09] MEDS ORDERED: MORPHINE SULFATE 4 MG/1ML SYG IV PRN (01:00)
[2020-04-09] MEDS: MORPHINE SULFATE 2 MG/ML 1ML SYG IV PRN ×2 (01:03→08:25)
[2020-04-09] MEDS: ACETAMINOPHEN 325 MG TAB PO PRN ×2 (03:08→12:39)
[2020-04-09 03:36] VITALS: BP 99/60
[2020-04-09] MEDS ORDERED: HYDROXYZINE HCL 25 MG TABLET PO SCH (05:15)
[2020-04-09 06:19] LABS: BASOPHILS % (AUTO) 0.7 % (0.0-5.0); EOSINOPHILS % (AUTO) 6.7 % (0.0-8.0); HEMATOCRIT 39.3 % (36-48); MEAN CORPUSCULAR HEMOGLOBIN 24.1 pg (27.0-33.0); MEAN CORPUSCULAR HGB CONC 30.3 g/dL (32.0-36.0); MEAN CORPUSCULAR VOLUME 79.7 fL (79-99); MONOCYTES % (AUTO) 10.9 % (3.0-13.0); NEUTROPHILS % (AUTO) 47.2 % (40.0-77.0); PLATELET COUNT (AUTO) 172 K/uL (130-400); RED BLOOD CELL COUNT(AUTO) 4.93 MIL/uL (4.00-5.50); RED CELL DISTRIBUTION WIDTH 22.4 % (11.0-15.5); WHITE BLOOD COUNT (AUTO) 5.9 K/uL (4.8-10.8)
[2020-04-09 06:35] LABS: ALBUMIN 2.7 g/dL (3.5-5.0); BILIRUBIN,TOTAL 0.8 mg/dL (0.2-1.0); CREATININE 1.1 mg/dL (0.5-1.5); POTASSIUM 4.1 mmol/L (3.5-5.1)
[2020-04-09 07:31] VITALS: BP 106/67
[2020-04-09] MEDS: ZINC OXIDE OINT 60GM TUBE TP SCH (09:00)
[2020-04-09] MEDS: PETROLATUM WHITE TP SCH (09:00)
[2020-04-09] MEDS: LANOLIN TP SCH (09:00)
[2020-04-09] MEDS: CITALOPRAM 20 MG TABLET PO SCH (09:33)
[2020-04-09] MEDS: SPIRONOLACTONE 25 MG TAB PO SCH (09:33)
[2020-04-09] MEDS: DIPHENHYDRAMINE HCL 25 MG CAPSULE PO PRN ×2 (09:33→20:24)
[2020-04-09] MEDS: OXYBUTYNIN CHLORIDE 5 MG TABLET PO SCH (09:33)
[2020-04-09] MEDS: FAMOTIDINE 20MG TAB 20 MG TAB PO SCH (09:33)
[2020-04-09] MEDS: PANTOPRAZOLE SODIUM 40 MG TABLET.DR PO SCH (09:33)
[2020-04-09] MEDS: SULFAMETHOX-TMP DS 800/160 TAB PO SCH ×2 (09:34→20:24)
[2020-04-09] MEDS: FERROUS SULFATE 325 MG TABLET.DR PO SCH (09:34)
[2020-04-09] MEDS: GABAPENTIN 300 MG CAPSULE PO SCH (09:34)
[2020-04-09] MEDS: BUSPIRONE HCL 5 MG TABLET PO SCH ×2 (09:34→20:24)
[2020-04-09] MEDS: BACLOFEN 10 MG TABLET PO SCH ×2 (09:35→20:24)
[2020-04-09] MEDS: FUROSEMIDE 20 MG TABLET PO SCH (09:45)
[2020-04-09 11:01] VITALS: BP 108/62
[2020-04-09] MEDS: ENOXAPARIN SODIUM 40 MG/0.4 ML SYRINGE SQ SCH (12:38)
[2020-04-09 16:00] VITALS: BP 104/66
[2020-04-09 19:42] VITALS: BP 105/63
== END 2020-04-10 00:46 | DRG 383 ==
LOC: EDH 19:26 → EDHIP 19:27 → 3CH 03-31 11:09
PROVIDERS: ADMIT Hospitalist; ATTEND Hospitalist
PROC: 0W9F3ZZ Drainage of Abdominal Wall, Percutaneous Approach (ICD-10-PCS; principal; 2020-04-01)
DX: L02.211 Cutaneous abscess of abdominal wall (principal); G93.40 Encephalopathy, unspecified; K76.6 Portal hypertension; E44.0 Moderate protein-calorie malnutrition; E11.40 Type 2 diabetes mellitus with diabetic neuropathy, unspecified; D57.1 Sickle-cell disease without crisis; E87.1 Hypo-osmolality and hyponatremia; B95.62 Methicillin resistant Staphylococcus aureus infection as the cause of diseases classified elsewhere; I12.9 Hypertensive chronic kidney disease with stage 1 through stage 4 chronic kidney disease, or unspecified chronic kidney disease; N18.9 Chronic kidney disease, unspecified; F20.9 Schizophrenia, unspecified; G20 Parkinson's disease; K74.60 Unspecified cirrhosis of liver; R33.9 Retention of urine, unspecified; M19.90 Unspecified osteoarthritis, unspecified site; M81.0 Age-related osteoporosis without current pathological fracture; F41.9 Anxiety disorder, unspecified; K59.00 Constipation, unspecified; R53.81 Other malaise; L03.311 Cellulitis of abdominal wall; Z20.828 Contact with and (suspected) exposure to other viral communicable diseases; E66.9 Obesity, unspecified; Z68.36 Body mass index [BMI] 36.0-36.9, adult; Z74.01 Bed confinement status; Z85.3 Personal history of malignant neoplasm of breast; Z80.3 Family history of malignant neoplasm of breast; Z82.0 Family history of epilepsy and other diseases of the nervous system; Z84.89 Family history of other specified conditions; Z82.49 Family history of ischemic heart disease and other diseases of the circulatory system
CPT/HCPCS: 0099U; 36415; 70450; 74018; 74176; 75989; 80048; 80053; 80202; 81001; 83605; 83690; 85025; 85610; 85651; 85730; 87040; 87071; 87076; 87077; 87088; 87186; 87205; 87486; 87581; 87633; 87798; 97039; 99291; G0378; J1170; J1200; J1650; J2270; J2543; J3370; J3486; J7030; J7040; Q0163; U0003

== ENCOUNTER 2020-04-17 22:40 | Inpatient (IN) | payer MEDICAID ==
[~2020-04-17] VITALS: Ht 152.4 cm; Wt 75.0 kg
[~2020-04-17 22:40] MED LIST changes: -ANAS1TAB7 PO; +BACL5TAB PO; +BUSP10TA3 PO; -CARB-39 PO; -DIPH25 PO; +DOCU-116 PO; +ESCI5TAB10 PO; +FERR324T4 PO; +GABA300C PO; -IBUP-2784 PO; -MULT-660 PO; -OMEP40CA13 PO; +OXYB5TAB15 PO; +PANT40TA PO; +PETR113O TP; +PHEN26CR2 RC; -ROPI5TAB4 PO; +SPIR100T5 PO; -SPIR50TA5 PO; +SULF1TAB42 PO; -TRAM50TA4 PO; +ZINC57OI4 TP
[2020-04-17 23:18] LABS: BASOPHILS % (AUTO) 0.4 % (0.0-5.0); HEMATOCRIT 35.7 % (36-48); LYMPHOCYTES % (AUTO) 10.9 % (21.0-51.0); MEAN CORPUSCULAR HEMOGLOBIN 25.1 pg (27.0-33.0); MEAN CORPUSCULAR HGB CONC 31.4 g/dL (32.0-36.0); MONOCYTES % (AUTO) 10.9 % (3.0-13.0); PLATELET COUNT (AUTO) 140 K/uL (130-400); RED BLOOD CELL COUNT(AUTO) 4.46 MIL/uL (4.00-5.50)
[2020-04-17] MEDS ORDERED: MEROPENEM 1 GM VIAL ONE (23:32)
[2020-04-17] MEDS ORDERED: SODIUM CHLORIDE 0.9% 1000ML 1,000 ML IV ONE ×2 (23:33→23:49)
[2020-04-17] MEDS ORDERED: SODIUM CHLORIDE 0.9% 100 ML IV ONE ×2 (23:33→23:55)
[2020-04-17 23:36] LABS: ALANINE AMINOTRANSFERASE 16 U/L (12-78); ALBUMIN 2.8 g/dL (3.5-5.0); ASPARTATE AMINOTRANSFERASE 24 U/L (10-37); BILIRUBIN,TOTAL 0.8 mg/dL (0.2-1.0); CARBON DIOXIDE 22 mmol/L (21-32); CREATINE KINASE, TOTAL 42 U/L (21-232); CREATININE 5.3 mg/dL (0.5-1.5); GLOMERULAR FILTR. RATE CALC 9 mL/min (>60); GLUCOSE,RANDOM 87 mg/dL (70-105); MYOGLOBIN 67 ng/mL (10-92); SODIUM SERUM 119 mmol/L (136-145); TOTAL PROTEIN, SERUM 7.8 g/dL (6.0-8.3); TROPONIN I < 0.04 ng/mL (0.00-0.06); UREA NITROGEN, BLOOD 55 mg/dL (7-18)
[2020-04-17 23:41] LABS: INR 1.04 (0.85-1.15); PARTIAL THROMBOPLASTIN TIME 33.3 SEC (26.3-35.5); PROTHROMBIN TIME 11.2 SEC (9.6-11.6)
[2020-04-17 23:42] LABS: CHLORIDE 89 mmol/L (101-111); POTASSIUM 7.2 mmol/L (3.5-5.1)
[2020-04-17] MEDS ORDERED: CALCIUM GLUCONATE 1 GM/10 ML VIAL IV ONE (23:47)
[2020-04-17] MEDS ORDERED: SODIUM BICARB 50MEQ 50ML VIAL ONE (23:47)
[2020-04-17] MEDS ORDERED: DEXTROSE 50%-WATER 50 ML DISP.SYRIN IV ONE (23:47)
[2020-04-17] MEDS ORDERED: INSULIN HUMULIN R 100 UNIT/ML 3ML ONE (23:48)
[2020-04-18 01:15] LABS: APPEARANCE,URINE Turbid (CLEAR); BILIRUBIN,URINE Negative (NEGATIVE); COLOR,URINE Yellow (YELLOW); GLUCOSE, URINE (UA) Negative (NEGATIVE); KETONES,URINE Negative (NEGATIVE); LEUKOCYTE ESTERASE ,URINE Large (NEGATIVE); NITRATE,URINE Negative (NEGATIVE); OCCULT BLOOD,URINE Moderate (NEGATIVE); PROTEIN,URINE Trace mg/dL (NEGATIVE); UROBILINOGEN,URINE 0.2 mg/dL (0.2-1.0)
[2020-04-18 01:23] LABS: BACTERIA,URINE Moderate /HPF (None Seen)
[2020-04-18 01:24] LABS: WBC,URINE 26-50 /HPF (0-1); YEAST,URINE BUDDING Many /HPF (None Seen)
[2020-04-18 01:27] LABS: TRANSITIONAL EPI CELLS,URINE Many /HPF (None Seen)
[2020-04-18] MEDS ORDERED: ONDANSETRON HCL 4 MG/2 ML VIAL IV PRN (04:45)
[2020-04-18] MEDS ORDERED: HYDRALAZINE HCL 20 MG/ML VIAL IV PRN (04:45)
[2020-04-18] MEDS ORDERED: MEROPENEM 1 GM VIAL IVP SCH (04:45)
[2020-04-18] MEDS ORDERED: LACTULOSE 20 GM/30 ML UDCUP PO PRN (04:45)
[2020-04-18] MEDS ORDERED: MEROPENEM 1 GM VIAL ONE ×2 (05:04→08:21)
[2020-04-18 05:32] LABS: BASOPHILS % (AUTO) 0.2 % (0.0-5.0); EOSINOPHILS % (AUTO) 1.9 % (0.0-8.0); HEMATOCRIT 34.3 % (36-48); LYMPHOCYTES % (AUTO) 13.8 % (21.0-51.0); MEAN CORPUSCULAR HEMOGLOBIN 25.7 pg (27.0-33.0); MEAN CORPUSCULAR HGB CONC 31.5 g/dL (32.0-36.0); MEAN CORPUSCULAR VOLUME 81.7 fL (79-99); MONOCYTES % (AUTO) 13.1 % (3.0-13.0); NEUTROPHILS % (AUTO) 70.5 % (40.0-77.0); PLATELET COUNT (AUTO) 138 K/uL (130-400); RED CELL DISTRIBUTION WIDTH 22.9 % (11.0-15.5); WHITE BLOOD COUNT (AUTO) 5.7 K/uL (4.8-10.8)
[2020-04-18 05:54] LABS: CREATININE 5.1 mg/dL (0.5-1.5)
[2020-04-18] MEDS: INSULIN HUMULIN R 100 UNIT/ML 3ML SQ SCH ×3 (06:00→18:00)
[2020-04-18] MEDS ORDERED: FAMOTIDINE/PF 20 MG/2 ML VIAL IV SCH (09:00)
[2020-04-18] MEDS ORDERED: FAMOTIDINE/PF 20 MG/2 ML VIAL IV ONE ×2 (10:12→21:07)
[2020-04-18] MEDS: CLINDAMYCIN 300 MG/D5W 50 ML 50 ML IV SCH ×3 (11:45→23:45)
[2020-04-18] MEDS ORDERED: CLINDAMYCIN 300 MG/D5W 50 ML 50 ML IV ONE (12:34)
[2020-04-18] MEDS ORDERED: SODIUM BICARB 50MEQ 50ML VIAL IVPB SCH (14:30)
[2020-04-18] MEDS ORDERED: FUROSEMIDE 10 MG/ML 4ML VIAL IV SCH (14:30)
[2020-04-18] MEDS ORDERED: SODIUM POLYSTYRENE SULFONATE 15 GM/60 ML ML PO SCH (14:30)
[2020-04-18] MEDS ORDERED: INSULIN HUMULIN R 100 UNIT/ML 3ML SQ SCH (14:45)
[2020-04-18] MEDS ORDERED: DEXTROSE 50%-WATER 50 ML DISP.SYRIN IV SCH (14:45)
[2020-04-18] MEDS ORDERED: CALCIUM CHLORIDE 100 MG/ML 10 ML SYG IVP SCH (14:45)
[2020-04-18] MEDS: SODIUM CHLORIDE 0.9% 1000ML 1,000 ML IV SCH (16:45)
[2020-04-18 16:52] LABS: ALBUMIN 2.7 g/dL (3.5-5.0); BILIRUBIN,TOTAL 0.7 mg/dL (0.2-1.0); CREATININE 5.1 mg/dL (0.5-1.5); TOTAL PROTEIN, SERUM 7.7 g/dL (6.0-8.3)
[2020-04-18 17:07] LABS: POTASSIUM 6.7 mmol/L (3.5-5.1)
[2020-04-18] MEDS ORDERED: SODIUM POLYSTYRENE SULFONATE 15 GM/60 ML ML ONE (17:22)
[2020-04-18] MEDS ORDERED: SODIUM BICARB 50MEQ 50ML VIAL ONE (17:23)
[2020-04-18] MEDS ORDERED: INSULIN HUMULIN R 100 UNIT/ML 3ML ONE (17:24)
[2020-04-18] MEDS ORDERED: FUROSEMIDE 10 MG/ML 4ML VIAL ONE (17:25)
[2020-04-18] MEDS ORDERED: DEXTROSE 50%-WATER 50 ML DISP.SYRIN IV ONE (17:25)
[2020-04-18] MEDS ORDERED: SODIUM CHLORIDE 0.9% 1000ML 1,000 ML IV ONE (17:28)
--- NOTE | 2020-04-18 19:34 | NUR ---
cm note call made to listed contact sister priyanka nixon, states she is next of kin and makes decisions for pt. pt currently at [facility] recently [place] [facility] nonambulatory at present due to weakness. but, wants rehab at [facility]. states ok to return back to [facility], when stable. choice letter obtained. Addendum: 04/18/20 at 1938 by LEONARD LOCKETT CM Amended: Links added.
[2020-04-19] MEDS ORDERED: MEROPENEM 1 GM VIAL ONE (04:13)
[2020-04-19] MEDS ORDERED: SODIUM CHLORIDE 0.9% 50 ML IV ONE (04:14)
[2020-04-19] MEDS ORDERED: CLINDAMYCIN 600 MG/D5% WATER 50 ML IV ONE (04:14)
[2020-04-19] MEDS ORDERED: LACTULOSE 20 GM/30 ML UDCUP ONE (04:44)
[2020-04-19] MEDS: CLINDAMYCIN 300 MG/D5W 50 ML 50 ML IV SCH ×4 (05:45→23:45)
[2020-04-19] MEDS: INSULIN HUMULIN R 100 UNIT/ML 3ML SQ SCH ×4 (06:00→18:00)
[2020-04-19] MEDS: SODIUM CHLORIDE 0.9% 1000ML 1,000 ML IV SCH ×2 (06:05→19:25)
[2020-04-19 06:19] LABS: BASOPHILS % (AUTO) 0.5 % (0.0-5.0); CREATININE 2.2 mg/dL (0.5-1.5); EOSINOPHILS % (AUTO) 1.6 % (0.0-8.0); HEMATOCRIT 30.9 % (36-48); LYMPHOCYTES % (AUTO) 7.6 % (21.0-51.0); MEAN CORPUSCULAR HEMOGLOBIN 25.1 pg (27.0-33.0); MEAN CORPUSCULAR HGB CONC 31.4 g/dL (32.0-36.0); MEAN CORPUSCULAR VOLUME 80.1 fL (79-99); MONOCYTES % (AUTO) 14.7 % (3.0-13.0); NEUTROPHILS % (AUTO) 75.1 % (40.0-77.0); PLATELET COUNT (AUTO) 140 K/uL (130-400); RED BLOOD CELL COUNT(AUTO) 3.86 MIL/uL (4.00-5.50); RED CELL DISTRIBUTION WIDTH 22.9 % (11.0-15.5); WHITE BLOOD COUNT (AUTO) 4.4 K/uL (4.8-10.8)
[2020-04-19] MEDS: FAMOTIDINE/PF 20 MG/2 ML VIAL IV SCH (09:00)
[2020-04-19] MEDS: SODIUM POLYSTYRENE SULFONATE 15 GM/60 ML ML RC SCH (09:00)
[2020-04-19] MEDS ORDERED: FAMOTIDINE/PF 20 MG/2 ML VIAL IV ONE (09:23)
[2020-04-19] MEDS ORDERED: SODIUM POLYSTYRENE SULFONATE 15 GM/60 ML ML ONE (09:23)
--- NOTE | 2020-04-19 10:08 | NUR ---
cm note re [facility] received call from sister REGINA Joaquin and states that she has decided that instead of going back to [facility] dc, she prefers that pt be referred to [facility]. pt is dialysis pt.
[2020-04-19] MEDS ORDERED: CLINDAMYCIN 300 MG/D5W 50 ML 50 ML IV ONE ×2 (13:14→15:55)
[2020-04-20] MEDS ORDERED: CLINDAMYCIN 300 MG/D5W 50 ML 50 ML IV ONE ×3 (01:22→19:38)
[2020-04-20] MEDS ORDERED: HYDROMORPHONE HCL 0.5 MG/0.5 ML ML ONE (03:44)
[2020-04-20] MEDS: CLINDAMYCIN 300 MG/D5W 50 ML 50 ML IV SCH ×4 (05:45→23:45)
[2020-04-20] MEDS: INSULIN HUMULIN R 100 UNIT/ML 3ML SQ SCH ×4 (06:00→18:00)
[2020-04-20] MEDS: SODIUM CHLORIDE 0.9% 1000ML 1,000 ML IV SCH ×2 (08:45→22:05)
[2020-04-20 08:48] LABS: HEMATOCRIT 30.1 % (36-48); MEAN CORPUSCULAR HGB CONC 31.6 g/dL (32.0-36.0); MEAN CORPUSCULAR VOLUME 82.5 fL (79-99); PLATELET COUNT (AUTO) 138 K/uL (130-400); RED BLOOD CELL COUNT(AUTO) 3.65 MIL/uL (4.00-5.50); RED CELL DISTRIBUTION WIDTH 22.6 % (11.0-15.5); WHITE BLOOD COUNT (AUTO) 4.9 K/uL (4.8-10.8)
[2020-04-20] MEDS: FAMOTIDINE/PF 20 MG/2 ML VIAL IV SCH (09:00)
[2020-04-20] MEDS: SODIUM POLYSTYRENE SULFONATE 15 GM/60 ML ML RC SCH (09:00)
[2020-04-20 09:07] LABS: % IRON SATURATION 10.1 % (22-44)
[2020-04-20 09:08] LABS: CREATININE 0.6 mg/dL (0.5-1.5); PHOSPHORUS 1.7 mg/dL (2.5-4.9)
[2020-04-20 09:39] LABS: POTASSIUM 2.9 mmol/L (3.5-5.1)
[2020-04-20 10:35] LABS: BASOPHILS % (MANUAL) 3 % (0-2); EOSINOPHILS % (MANUAL) 6 % (1-6); LYMPHOCYTES % (MANUAL) 15 % (22-44); MAN.DIFF COMMENT-IMPRESSION MANUAL DIFFERENTIAL; MONOCYTES % (MANUAL) 12 % (2-9); PLATELET MORPHOLOGY COMMENT ADEQUATE; REACTIVE LYMPHOCYTES 1 % (0-0); SEGMENTED NEUTROPHILS % 63 % (40-70)
[2020-04-20] MEDS ORDERED: COMPOUND IV MISC 1 EACH IVSOLN MISC PRN (12:15)
--- NOTE | 2020-04-20 14:51 | NUR ---
PHONE CALL EDWINA Haile has spoken to pt's POA, Tonya, and has given updateon pt's condition.
--- NOTE | 2020-04-20 16:56 | NUR ---
DC PLAN TO [facility] CHART REVIEWED, THIS MORNING-- SPOKE TO [facility] REP & [facility] REP. PATIENTS NEEDS DISCUSSED, PT REFERRAL TO [facility] FROM LAST ADMIT DISCUSSED. [facility] DECLINED AGAIN, NADIRST. [facility] STATES PATIENT CAN GO BACK THERE CALL TO [facility] AND EXPLAINED THAT PATIENT WAS DECLINED AT [facility]; [facility] AGREED TO HAVE PATIENT RETURN TO [place]. Addendum: 04/20/20 at 1701 by JORGE REDD RN CM Amended: Links added.
[2020-04-20] MEDS ORDERED: SODIUM CHLORIDE 0.9% 1000ML 1,000 ML IV ONE (19:49)
[2020-04-21] MEDS: CLINDAMYCIN 300 MG/D5W 50 ML 50 ML IV SCH ×4 (00:20→17:52)
[2020-04-21] MEDS ORDERED: CLINDAMYCIN 300 MG/D5W 50 ML 50 ML IV ONE (02:17)
[2020-04-21 03:30] VITALS: BP 106/64
[2020-04-21] MEDS ORDERED: RISP1TAB26 PO (04:39)
[2020-04-21] MEDS ORDERED: MECL-183 PO (04:39)
[2020-04-21] MEDS ORDERED: DIPH25CA85 PO (04:39)
[2020-04-21] MEDS ORDERED: ACET325T51 PO (04:39)
[2020-04-21] MEDS ORDERED: CITA10TA13 PO (04:39)
[2020-04-21] MEDS ORDERED: FAMO20TA8 PO (04:39)
[2020-04-21] MEDS: INSULIN HUMULIN R 100 UNIT/ML 3ML SQ SCH ×5 (05:43→20:28)
[2020-04-21 05:46] LABS: BASOPHILS % (AUTO) 0.5 % (0.0-5.0); EOSINOPHILS % (AUTO) 3.7 % (0.0-8.0); HEMATOCRIT 31.8 % (36-48); LYMPHOCYTES % (AUTO) 18.1 % (21.0-51.0); MEAN CORPUSCULAR HEMOGLOBIN 25.3 pg (27.0-33.0); MEAN CORPUSCULAR HGB CONC 30.8 g/dL (32.0-36.0); MONOCYTES % (AUTO) 16.3 % (3.0-13.0); NEUTROPHILS % (AUTO) 61.1 % (40.0-77.0); PLATELET COUNT (AUTO) 122 K/uL (130-400); RED BLOOD CELL COUNT(AUTO) 3.88 MIL/uL (4.00-5.50); RED CELL DISTRIBUTION WIDTH 22.5 % (11.0-15.5); WHITE BLOOD COUNT (AUTO) 6.1 K/uL (4.8-10.8)
[2020-04-21 06:17] LABS: ALBUMIN 2.3 g/dL (3.5-5.0); BILIRUBIN,TOTAL 0.9 mg/dL (0.2-1.0); CREATININE 0.5 mg/dL (0.5-1.5); POTASSIUM 3.2 mmol/L (3.5-5.1); TOTAL PROTEIN, SERUM 6.2 g/dL (6.0-8.3)
[2020-04-21] MEDS: FLUCONAZOLE 200 MG/NS 100 ML 100 ML IV SCH (08:14)
[2020-04-21] MEDS: FAMOTIDINE/PF 20 MG/2 ML VIAL IV SCH (08:15)
[2020-04-21] MEDS: SODIUM POLYSTYRENE SULFONATE 15 GM/60 ML ML RC SCH (08:15)
[2020-04-21 08:19] VITALS: BP 113/64
[2020-04-21 11:25] VITALS: BP 100/54
[2020-04-21] MEDS: IRON SUCROSE COMPLEX 100 MG in SODIUM CHLORIDE 0.9% 50 ML IV SCH (11:30)
[2020-04-21] MEDS: SODIUM CHLORIDE 0.9% 1000ML 1,000 ML IV SCH (12:15)
--- NOTE | 2020-04-21 12:28 | NUR ---
RDSCREEN - NPO > 3 DAYS Pt admittedwith ARF, Metabolic encephalopathy, UTI. Pt Hx of Abdominal wall cellulitis. Pt NPO since admit. Round, soft abdomin, per EMR. K 3.2, AST 42, Alb 2.3. L/R-Heel DTI. Recommend advance diet as tolerated to Heart healthy, when medically feasible Recommend Dami BID Recommend Ensure QD RD to continue to monitor. Please notify RD as additional nutrition concerns arise. Thank you.
[2020-04-21] MEDS ORDERED: POTASSIUM CHLORIDE 10% ELIXIR 20 MEQ/15 ML UDCUP PO SCH (14:30)
[2020-04-21] MEDS: ENOXAPARIN SODIUM 40 MG/0.4 ML SYRINGE SQ SCH (15:27)
[2020-04-21 17:17] VITALS: BP 105/56
[2020-04-21 19:28] VITALS: BP 118/58
[2020-04-21 23:24] VITALS: BP 110/53
[2020-04-22 03:45] VITALS: BP 110/56
[2020-04-22] MEDS: SODIUM CHLORIDE 0.9% 1000ML 1,000 ML IV SCH (04:41)
[2020-04-22] MEDS: CLINDAMYCIN 300 MG/D5W 50 ML 50 ML IV SCH ×3 (05:04→17:20)
[2020-04-22] MEDS: INSULIN HUMULIN R 100 UNIT/ML 3ML SQ SCH ×4 (05:32→19:55)
[2020-04-22 07:00] VITALS: BP 105/61
--- NOTE | 2020-04-22 08:30 | NUR ---
ASSESSMENT COMPLETED AND DOCUMENTED. PATIENT NEEDS ASSISTANCE WITH MEALS DUE TO UNABLE TO HOLD SPOON , FOOD FALLS OFF TO BED. PATIENT STATES SHE HAS HAD THIS PROBLEM FOR YEARS. PATIENT WITH PERIODS OF BEING FORGETFUL. SHES CONTINUES TO STATE THAT SHE IS AT [facility]. WILL CONTINUE TO MONITOR.
[2020-04-22] MEDS: FAMOTIDINE/PF 20 MG/2 ML VIAL IV SCH (08:52)
[2020-04-22] MEDS: FLUCONAZOLE 200 MG/NS 100 ML 100 ML IV SCH (08:52)
[2020-04-22] MEDS: ENOXAPARIN SODIUM 40 MG/0.4 ML SYRINGE SQ SCH (08:53)
[2020-04-22] MEDS ORDERED: FUROSEMIDE 10 MG/ML 2ML VIAL IV SCH (09:15)
[2020-04-22] MEDS ORDERED: POTASSIUM CHLORIDE 20 MEQ ERTAB PO SCH (09:15)
--- NOTE | 2020-04-22 09:15 | NUR ---
DR. MARCI GALAN IN TO SEE PATIENT, UPDATE GIVEN. ORDERS: [facility], PHYSICAL THERAPY, DC PLANNING FOR TOMORROW BACK TO [facility].
[2020-04-22] MEDS: IRON SUCROSE COMPLEX 100 MG in SODIUM CHLORIDE 0.9% 50 ML IV SCH (09:54)
[2020-04-22 12:16] VITALS: BP 95/68
--- NOTE | 2020-04-22 13:45 | NUR ---
PHYSICAL THERAPY IN TO SEE PATIENT.
--- NOTE | 2020-04-22 14:14 | NUR ---
INCONTINENT OF LARGE AMOUNT OF URINE. CARLOS A CARE COMPLETED, APPLIED BARRIER CREAM TO BUTTOCKS DUE TO REDNESS NOTED.
[2020-04-22 16:11] VITALS: BP 109/62
--- NOTE | 2020-04-22 16:30 | NUR ---
BLOOD SUGAR 65, ASYMPTOMATIC. FED DINNER MEAL--DRANK ICED TEA, 1 SPOONFUL OF JELLO, AND 3 SPOONFULS OF PEAS WITH NOODLES AND MEAT. DID NOT WANT TO EAT MORE. EXPLAINED TO PATIENT THE IMPORTANCE OF EATING DUE TO LOW BLOOD SUGAR. VERBALIZED UNDERSTANDING. WILL RE CHECK BLOOD SUGAR IN 30 MINUTES.
--- NOTE | 2020-04-22 17:30 | NUR ---
BLOOD SUGAR 77, ASYMPTOMATIC. WILL CONTINUE TO MONITOR.
--- NOTE | 2020-04-22 17:45 | NUR ---
WITH 2 PERSON MAX ASSIST, SAT PATIENT UP IN CHAIR PER REQUEST.
--- NOTE | 2020-04-22 18:09 | NUR ---
ATE FRUIT CUP AND DRANK WATER. ENCOURAGED NUTRITION.
[2020-04-22 19:01] VITALS: BP 93/56
[2020-04-22 23:00] VITALS: BP 101/56
[2020-04-23] VITALS (7 sets, daily range): BP systolic 98–107; BP diastolic 46–64
[2020-04-23] MEDS: CLINDAMYCIN 300 MG/D5W 50 ML 50 ML IV SCH ×4 (01:38→17:45)
[2020-04-23] MEDS: INSULIN HUMULIN R 100 UNIT/ML 3ML SQ SCH (07:30)
--- NOTE | 2020-04-23 08:00 | NUR ---
ASSESSMENT ENCOUNTERED PT LEMUEL IN PAIN BUT STOPS WHEN ARRIVING AT BEDSIDE. PT C/O GENERALIZED BODY ACHES AND STATES SHE SEES A PAIN MANAGEMENT DR TANNER IN [place]. PT STATES SHE IS UNABLE TO GRASP AND FEED HERSELF, PT REPOSITIONED TO HIGH BAL'S FOR MEAL, PT IS ABLE TO TOLERATE FOODS, FLUIDS AND MEDICATION WITH NO THROAT CLEARING OR COUGH. CALL LIGHT WITHIN REACH.
[2020-04-23] MEDS: FLUCONAZOLE 200 MG/NS 100 ML 100 ML IV SCH (08:13)
[2020-04-23] MEDS: FAMOTIDINE/PF 20 MG/2 ML VIAL IV SCH (08:14)
[2020-04-23] MEDS: ENOXAPARIN SODIUM 40 MG/0.4 ML SYRINGE SQ SCH (08:14)
[2020-04-23] MEDS ORDERED: ACETAMINOPHEN 325 MG TAB ONE (08:54)
[2020-04-23] MEDS: IRON SUCROSE COMPLEX 100 MG in SODIUM CHLORIDE 0.9% 50 ML IV SCH (09:00)
[2020-04-23] MEDS ORDERED: MORPHINE SULFATE 2 MG/ML 1ML SYG IVP PRN (11:45)
[2020-04-23] MEDS ORDERED: TRAM50TA4 PO (12:01)
[2020-04-23] MEDS ORDERED: GABAPENTIN 300 MG CAPSULE ONE (12:13)
[2020-04-23] MEDS: TRAMADOL HCL 50 MG TABLET PO PRN ×2 (12:18→21:51)
[2020-04-23] MEDS ORDERED: MIDODRINE HCL 5 MG TABLET ONE (12:20)
[2020-04-23] MEDS: MIDODRINE HCL 5 MG TABLET PO SCH ×2 (12:21→21:43)
--- NOTE | 2020-04-23 13:30 | NUR ---
COVID COLLECTION TO LEFT NARE, SPECIMEN SENT TO LAB.
--- NOTE | 2020-04-23 15:32 | NUR ---
CM NOTE/SUPERIOR EMS REQUEST REQUEST FAXED TO [facility] FOR NON EMERGENCY EMS TRANSFER TO ALF SNF, CM TO FOLLOW UP ACCORDINGLY. REQUIRES COVID TESTING, LAST TEST DONE WAS NEGATIVE BUT [facility] REQUIRES NEGATIVE COVID RESULT 72HR PRIOR TO TRANSFER. COVID RETEST DONE, PENDING RESULTS. CM TO FOLLOW UP ACCORDINGLY.
[2020-04-23] MEDS ORDERED: DIGOXIN 250 MCG/ML 2ML AMP IV SCH (19:55)
[2020-04-23] MEDS ORDERED: METOPROLOL TARTRATE 1 MG/ML 5ML VIAL IV SCH (19:55)
[2020-04-23] MEDS: METOPROLOL TARTRATE 25 MG TAB PO SCH (21:00)
[2020-04-23] MEDS ORDERED: GABAPENTIN 300 MG CAPSULE PO SCH (21:00)
[2020-04-23] MEDS ORDERED: GLUCAGON 1MG KIT 1 MG ML IM PRN (23:45)
[2020-04-23] MEDS ORDERED: DEXTROSE 50%-WATER 50 ML DISP.SYRIN IV PRN (23:45)
[2020-04-24] MEDS: CLINDAMYCIN 300 MG/D5W 50 ML 50 ML IV SCH ×4 (01:00→17:02)
[2020-04-24] MEDS: TRAMADOL HCL 50 MG TABLET PO PRN ×5 (02:50→20:44)
[2020-04-24 04:00] VITALS: BP 91/56
[2020-04-24] MEDS: INSULIN HUMULIN R 100 UNIT/ML 3ML SQ SCH ×3 (05:58→15:33)
[2020-04-24 08:00] VITALS: BP 126/59
[2020-04-24] MEDS: FLUCONAZOLE 200 MG/NS 100 ML 100 ML IV SCH (09:11)
[2020-04-24] MEDS: METOPROLOL TARTRATE 25 MG TAB PO SCH ×2 (09:11→13:50)
[2020-04-24] MEDS: FAMOTIDINE/PF 20 MG/2 ML VIAL IV SCH (09:11)
[2020-04-24] MEDS: MIDODRINE HCL 5 MG TABLET PO SCH ×2 (09:11→13:50)
[2020-04-24] MEDS: IRON SUCROSE COMPLEX 100 MG in SODIUM CHLORIDE 0.9% 50 ML IV SCH (09:12)
[2020-04-24] MEDS: ENOXAPARIN SODIUM 40 MG/0.4 ML SYRINGE SQ SCH (09:12)
[2020-04-24 11:43] VITALS: BP 136/69
[2020-04-24 15:31] VITALS: BP 125/62
--- NOTE | 2020-04-24 17:00 | NUR ---
cm note pt accepted as per kylee with [facility]. updated primary nurse, and MD will go via EMS
[2020-04-24 20:40] VITALS: BP 79/42
--- NOTE | 2020-04-24 20:50 | NUR ---
PT TRANSFERRED VIA EMS ON STRETCHER WITH 2 sales [employer]. PT IS TALKATIVE. TRAMADOL GIVEN BEFORE TRANSFER D/T PT C/O PAIN. BELONGINGS WERE TAKEN WITH PT IN A BAG. VITALS 79/42, TEMP 98.0, R17, O2 97% HR 84. SISTER L[facility] AWARE OF PATIENTS TRANSFER TO [facility].
== END 2020-04-24 20:49 | DRG 469 ==
LOC: EDH 22:40 → EDHIP 22:41 → DAHIP 04-21 02:09
PROVIDERS: ADMIT Hospitalist; ATTEND Hospitalist
DX: N17.9 Acute kidney failure, unspecified (principal); N39.0 Urinary tract infection, site not specified; G93.41 Metabolic encephalopathy; E87.5 Hyperkalemia; E87.1 Hypo-osmolality and hyponatremia; N13.9 Obstructive and reflux uropathy, unspecified; Z86.14 Personal history of Methicillin resistant Staphylococcus aureus infection; K76.6 Portal hypertension; K74.60 Unspecified cirrhosis of liver; M19.90 Unspecified osteoarthritis, unspecified site; M81.0 Age-related osteoporosis without current pathological fracture; G20 Parkinson's disease; F20.9 Schizophrenia, unspecified; Z85.3 Personal history of malignant neoplasm of breast; F41.9 Anxiety disorder, unspecified; Z20.828 Contact with and (suspected) exposure to other viral communicable diseases; R53.81 Other malaise; L03.311 Cellulitis of abdominal wall
CPT/HCPCS: 36415; 70450; 71045; 74176; 80048; 80053; 81001; 82140; 82550; 82728; 82948; 83540; 83550; 83605; 83874; 84100; 84145; 84484; 85025; 85378; 85610; 85730; 86140; 87040; 87088; 93005; 97039; 99291; G0378; J0610; J1170; J1450; J1650; J1756; J1815; J1940; J2185; J3490; J7030; J7070; U0003